=== PATIENT | female | born 2000 | race Caucasian/White ===

== ENCOUNTER → 2021-04-19 13:31 | Outpatient (BNVA) | payer OTHER, SELFPAY | PROVIDERS: Visit Provider Nurse Practitioner | DX: Z20.822 Contact with and (suspected) exposure to COVID-19 (principal) | CPT/HCPCS: 87635 ==

== ENCOUNTER → 2022-07-13 09:00 | Outpatient (BNVA) | payer SELFPAY | PROVIDERS: Visit Provider Obstetrics & Gynecology | DX: Z12.4 Encounter for screening for malignant neoplasm of cervix (principal) | CPT/HCPCS: 88175 ==

== ENCOUNTER → 2022-10-21 14:27 | Outpatient (BNVA) | payer SELFPAY | PROVIDERS: PCP Clinical Nurse Specialist Adult Health; Visit Provider Clinical Nurse Specialist Adult Health | DX: R53.83 Other fatigue (principal) | CPT/HCPCS: 80053; 84436; 84443; 84481; 85025 ==

== ENCOUNTER 2023-01-17 16:45 | Emergency (ER) | payer SELFPAY ==
[2023-01-17 16:53] VITALS: BP 139/99; PULSE 76; RESP 19; TEMP 37.3; BMI 21.2
--- NOTE | 2023-01-17 17:01 | ED_ITS ---
HPI - Dental/Oral General: Chief complaint: Dental/Oral Stated complaint: tooth ache Time Seen by Provider: 01/17/23 16:54 Source: patient Mode of arrival: ambulatory Limitations: no limitations History of Present Illness: Patient states that she was eating chips earlier today and bit down and suffered onset of pain in her left upper jaw tooth. She states the pain is continued since that time. She has had some achiness in that area previously but no other symptoms like she is experiencing now. She has had a prior filling in that tooth. Otherwise no other dental problems. No other constitutional complaints to include fevers chills etc. MD Complaint: tooth pain Location: Tooth # (13) Teeth map: 1. Area of pain Duration: constant Severity: moderate Associated symptoms: Denies fever(s) or odynophagia Review of Systems Const: Denies: fever(s) or chills Eyes: Denies: change in vision ENMT: Reports: dental pain; Denies: throat pain or odynophagia GI: Denies: nausea or vomiting Musc: Denies: neck pain Skin/Breast: Denies: rash or pruritus Neuro: Denies: headache(s), numbness in extremities or weakness in extremities Psych: Denies: anxiety or depression PFSH ED PFSH: Medical History No pertinent past medical history neghx:htn,dm,thyroid,dvt/pe PCP: Not Established Surgical History No pertinent past surgical history Family History Grandmother Colon cancer Maternal Diabetes Maternal Hyperlipidemia Maternal Family/Other Diabetes Aunt and Uncle/ Maternal Denies family history of Ovarian cancer Heart disease Breast cancer Hypertension Uterine cancer Thyroid condition Stroke Social History Smoking and tobacco status: current every day smoker e-cigarettes E-Cigarette Details: vaporizer device Alcohol intake: current Alcohol intake frequency: holidays/special occasions only Substance/Drug Use: never Education level details: high school Current occupational status: employed Current occupation: Restaurant Physical Exam Narrative: EXAM NARRATIVE: She makes good eye contact but is tearful Const: COMMON NORMALS: average body habitus, patient oriented x3 and healthy appearing GENERAL APPEARANCE: cooperative HENMT: COMMON NORMALS: normocephalic, atraumatic, EAC's normal, TM's normal bilaterally and moist oral mucous membranes HEAD & SCALP: normocephalic and atraumatic FACE & SINUS: normal facial exam and face symmetric EXTERNAL AUDITORY CANAL: EAC's normal TYMPANIC MEMBRANE: TM's normal bilaterally MOUTH: lip normal and tongue normal TEETH & GINGIVA IMAGES: 1. Area of tenderness to percussion and pressure. She also has a intact rastafari THROAT: posterior oropharynx normal, tonsils normal and uvula midline OTHER: She has tenderness to percussion over tooth 13 and 14. No gum swelling, evidence of gingivitis, obvious decay noted. She does have a rastafari over the crown of 13 appears intact. Eye: COMMON NORMALS: Equal, round and reactive pupils present and EOMs intact bilaterally PUPIL: Yes Equal, round and reactive pupils present Neck/C-Spine: COMMON NORMALS: full ROM and no lymphadenopathy Resp: EFFORT & INSPECTION: Yes able to speak in complete sentences Cardio: COMMON NORMALS: regular rhythm RHYTHM: regular rhythm Neuro: COMMON NORMALS: patient oriented x3 Procedures Nerve Block Nerve Block 1: Local Anesthetic: lidocaine 1% Side: left Intraoral Nerve Block: infraorbital Procedure Successful: Yes Patient Tolerated Procedure: well Complications: none Course Reevaluation(s): Reevaluation #1: Patient's had fair response to her infraorbital nerve block. Additional 1 mL of 1% lidocaine was injected more proximal along the superior alveolar nerve. No evidence to suggest acute infection at this time. We will have her use ibuprofen for the next 24 hours with ice packs. She should follow-up with her dentist if her pain returns. She would likely need Panorex or other radiographs to determine if she has an occult abscess or other condition or just suffering from nerve pain due to her mastication. Time: 17:26 Reevaluation #2: Doing better; about 90% better. Discussed home care, expected course, dentist follow-up Time: 18:05 Vital Signs: Vital signs: Vital Signs Temperature 99.1 F 01/17/23 16:53 Pulse Rate 76 01/17/23 16:53 Respiratory Rate 19 H 01/17/23 16:53 Blood Pressure 139/99 01/17/23 16:53 MDM - Dental/Oral Medical Decision Making Patient presented to the emergency department with acute left maxillary pain after eating chips. No significant history of dental pain in the same area. Has had a previous rastafari in that area. Her clinical examination revealed a healthy appearing tooth and gingival region. There is no evidence of gingivitis. No obvious periapical abscess. She does have a what appears to be an intact rastafari on tooth #13 but is tender to percussion. She responded well to a infraorbital nerve block. Plan will be to discharge her on ibuprofen with dental follow-up if she has persistent or recurrent pain. No radiology studies performed this visit Discharge Plan Discharge Patient Disposition: Home Clinical Impression: Pain, dental Condition: Stable Prescriptions: No Action No Known Home Medications Discharge Orders: Discharge ED (Routine); Ordered 01/17/23 Ordered By: Abdirizak Duenas Referrals: Sukumar Smith NP [Primary Care Provider] - Discharge Diet: Soft Mechanical Discharge Activity: Increase activity as tolerated Patient Instructions: Opioid Safety, Pain Management Activity Restrictions/Additional Instructions: You may take btpv-tuy-lbytegk strength ibuprofen 200 mg every 8 hours with meals. Use ice to the area for any residual soreness. If you are still having pain you are welcome to return to the emergency department for reevaluation and perhaps a additional nerve block however if you still continue to have pain tomorrow you should call your dentist for follow-up to include radiographs and other treatment as indicated. If you develop fever or swelling or any other concerns prior to that time you are welcome to return to the emergency department. Coding Level of Care Code ED Professional Poker Player for Jamie Anderson
== END 2023-01-17 18:13 | disposition home or self-care (01) ==
PROVIDERS: Emergency Provider Emergency Medicine; PCP Clinical Nurse Specialist Adult Health
DX: K08.89 Other specified disorders of teeth and supporting structures (principal); F17.290 Nicotine dependence, other tobacco product, uncomplicated
CPT/HCPCS: 64400; 99283

== ENCOUNTER 2024-04-06 01:35 | Emergency (ER) | payer BC, SELFPAY ==
[2024-04-06] VITALS (27 sets, daily range): BP systolic 104–149; BP diastolic 52–109; PULSE 68–109; RESP 14–22; TEMP 36.8; O2SAT 94–100; BMI 29.2
--- NOTE | 2024-04-06 01:39 | W.ED.PSYCHS ---
HPI - Psych General: Chief Complaint: Overdose Stated Complaint: OD Time Seen by Provider: 04/06/24 01:38 History of Present Illness: 24-year-old female who presents emergency room by ambulance. Apparently she called a friend and told them that she had been drinking and took a bunch of medications. These were not her medications. They were last filled on 1030. There was a number of them on the floor. She also vomited. The bottles are empty here. They are escitalopram 10 mg and buspirone 10 mg. She is somewhat somnolent and does not want to speak with us. She does awake. Related Data Previous Rx's Medication Instructions Recorded ciprofloxacin HCl 500 mg tablet 500 mg PO BID #10 tabs 02/21/24 prednisone 20 mg tablet 40 mg (2 x 20 mg) PO DAILY 3 days 02/21/24 #6 tabs Allergies Allergy/AdvReac Type Severity Reaction Status Date / Time Penicillins Allergy Intermediate ADR-vomitin Verified 02/21/24 16:47 g Review of Systems General: Reports: ROS unobtainable due to medical condition [facility] ED PFSH: Medical History No pertinent past medical history neghx:htn,dm,thyroid,dvt/pe PCP: Surgical History No pertinent past surgical history Family History Grandmother Colon cancer Maternal Diabetes Maternal Hyperlipidemia Maternal Family/Other Diabetes Aunt and Uncle/ Maternal Denies family history of Ovarian cancer Heart disease Breast cancer Hypertension Uterine cancer Thyroid disease Stroke Social History Smoking and tobacco/nicotine status: tobacco/nicotine user, details unknown e-cigarettes E-Cigarette Details: vaporizer device Alcohol intake: current Alcohol intake frequency: holidays/special occasions only Substance/Drug Use: never Education level details: high school Current occupational status: employed Current occupation: Restaurant Physical Exam Narrative: EXAM NARRATIVE: General: Somnolent, no acute distress. Skin: Warm, dry. Head: Normocephalic, atraumatic. Neck: Supple, trachea midline. Eye: Extraocular movements are intact. Ears, nose, mouth and throat: mucosa moist. Cardiovascular: Regular, Normal peripheral perfusion. Respiratory: Lungs are clear to auscultation, respirations are non-labored, breath sounds are equal, Symmetrical chest wall expansion. Gastrointestinal: Soft, Nontender, Non distended Musculoskeletal: Normal ROM, no deformity. Neurological: Somnolent but arousable, No focal neurological deficit observed. Psychiatric: Cooperative, patient is quite somnolent, she appears depressed tearful at times Course Vital Signs: Vital signs: Vital Signs Temperature 98.3 F 04/06/24 01:36 Pulse Rate 82 04/06/24 04:20 Respiratory Rate 19 H 04/06/24 04:20 Blood Pressure 119/70 04/06/24 04:20 Pulse Oximetry 94 04/06/24 04:20 Oxygen Delivery Me thod Room Air 04/06/24 03:00 MDM - Psych Medical Decision Making Differential diagnosis: Patient with reported depression and suicidal ideation. concerns for infection, alcohol intoxication, cardiac issues or other medical problems prior to psychiatric admission. Workup: labwork, ekg ordered to evaluate the pathologies and to clear the patient medically prior to psychiatric admission EKG: Time 1:51 AM. Rate 109. Sinus tachycardia, No ST-T changes, no ectopy, normal IN & QRS intervals, This was reviewed and interpreted by myself the ER physician at 1:55 AM Lab Review: Laboratory results were reviewed and interpreted by myself the emergency room physician. - EKG shows no ischemic changes. - Blood alcohol level is 89, -Tylenol and salicylate levels are negative. - Drug screen is negative - No signs of infection, urinalysis clear and white count is not elevated - No anemia. - BUN and creatinine are within normal limits. Consultation: Poison control was contacted. They recommend a 4-hour EKG Assessment and plan: Suicidal ideation Depression Multiple drug overdose -Patient will require transfer to neuropsychiatric unit for continued evaluation and treatment. Her is admitted to the Neuropsych Unit here so she will not be able to go here. - All lab work was reviewed and interpreted personally by myself, the ER physician - Evaluation and treatment of this problem were appropriate in the emergency setting Lab Data 04/06/24 01:46 04/06/24 01:46 Laboratory Results WBC 6.85 10^3/uL (3.29-11.43) 04/06/24 01:46 RBC 4.55 10^6/uL (3.85-5.65) 04/06/24 01:46 Hgb 14.40 g/dL (11.27-16.99) 04/06/24 01:46 Hct 41.1 % (36-47) 04/06/24 01:46 MCV 90.3 fl (85-98) 04/06/24 01:46 MCH 31.6 pg (27-33) 04/06/24 01:46 MCHC 35.0 g/dL (30-55) 04/06/24 01:46 RDW 13.9 % (12.1-15.1) 04/06/24 01:46 Plt Count 255 10^3/cmm (157-399) 04/06/24 01:46 MPV 9.1 fL (7.4-10.4) 04/06/24 01:46 Neut % (Auto) 56.9 % 04/06/24 01:46 Lymph % (Auto) 30.1 % 04/06/24 01:46 Jerome % (Auto) 10.4 % 04/06/24 01:46 Eos % (Auto) 2.0 % 04/06/24 01:46 Baso % (Auto) 0.3 % 04/06/24 01:46 Neut # (Auto) 3.90 10^3/uL (1.8-7.7) 04/06/24 01:46 Lymph # (Auto) 2.1 10^3/uL (0.8-4.8) 04/06/24 01:46 Jerome # (Auto) 0.7 10^3/uL (0.2-0.9) 04/06/24 01:46 Eos # (Auto) 0.1 10^3/uL (0.0-0.8) 04/06/24 01:46 Baso # (Auto) 0.0 10^3/uL (0.0-0.1) 04/06/24 01:46 Nucleated RBC % (auto) 0 % 04/06/24 01:46 Nucleated RBCs # 0.0 /100WBC 04/06/24 01:46 Specimen Type Art 04/06/24 01:39 Sample Site Radial right 04/06/24 01:39 ABG pH 7.39 (7.35-7.45) 04/06/24 01:39 ABG pCO2 36.7 mmHg (35-45) 04/06/24 01:39 ABG pO2 95.9 mmHg (80.0-100.0) 04/06/24 01:39 ABG PO2/FiO2 Ratio 456 04/06/24 01:39 ABG HCO3 22.3 mmol/L (22-26) 04/06/24 01:39 ABG O2 Saturation 98 04/06/24 01:39 ABG Base Excess -2.2 mmol/L (-2.0-2.0) L 04/06/24 01:39 Donovan Test Y 04/06/24 01:39 A-a O2 Gradient Not Reportable 04/06/24 01:39 Hematocrit Not Reportable 04/06/24 01:39 Hgb O2 Saturation 96.2 % (95-100) 04/06/24 01:39 Carboxyhemoglobin 0.7 %THgb (0.4-20.1) 04/06/24 01:39 Methemoglobin 1.2 % (0.4-1.5) 04/06/24 01:39 Total Hemoglobin 14.2 g/dL (12-16) 04/06/24 01:39 Sodium 145.0 mmol/L (131-143) H 04/06/24 01:39 Potassium 2.8 mmol/L (3.5-5.0) L 04/06/24 01:39 Glucose 126.0 mg/dL (70-115) H 04/06/24 01:39 Ionized Calcium Not Reportable 04/06/24 01:39 O2 Delivery Device None 04/06/24 01:39 FiO2 21.0 % 04/06/24 01:39 Specimen Drawn By Lois 04/06/24 01:39 User Interface Designer ID No 04/06/24 01:39 Blood Gas Notified Time 0154 04/06/24 01:39 Sodium 142 mmol/L (136-145) 04/06/24 01:46 Potassium 3.1 mmol/L (3.5-5.1) L 04/06/24 01:46 Chloride 104 mmol/L (98-107) 04/06/24 01:46 Carbon Dioxide 23 mmol/L (22-29) 04/06/24 01:46 Anion Gap 18.1 (5-19) 04/06/24 01:46 BUN 3 mg/dL (6-20) L 04/06/24 01:46 Creatinine 0.7 mg/dL (0.5-0.9) 04/06/24 01:46 GFR Calculation 102.0 mL/min (90-130) 04/06/24 01:46 Glucose 137 mg/dL (65-115) H 04/06/24 01:46 Calculated Osmolality 293 mOsm/kg (285-295) 04/06/24 01:46 Lactic Acid 3.2 mmol/L (0.5-2.2) H 04/06/24 01:46 Calcium 8.7 mg/dL (8.5-10.5) 04/06/24 01:46 Total Bilirubin 0.5 mg/dL (0.15-1.2) 04/06/24 01:46 AST 20 U/L (0-32) 04/06/24 01:46 ALT 22 U/L (0-33) 04/06/24 01:46 Alkaline Phosphatase 100 U/L (35-105) 04/06/24 01:46 Total Protein 6.9 g/dL (6.6-8.7) 04/06/24 01:46 Albumin 4.2 g/dL (3.5-5.2) 04/06/24 01:46 Globulin 2.7 g/dL (1.3-4.6) 04/06/24 01:46 TSH 1.66 uIU/mL (0.27-4.20) 04/06/24 01:46 HCG, Qual Negative (Negative) 04/06/24 02:00 Urine Color Yellow (Yellow) 04/06/24 02:00 Urine Appearance Cloudy (CLEAR) A 04/06/24 02:00 Urine pH 6.0 (5-7) 04/06/24 02:00 Ur Specific [place] 1.003 (1.005-1.030) L 04/06/24 02:00 Urine Protein Negative (Negative) 04/06/24 02:00 Urine Glucose (UA) Negative (Normal) 04/06/24 02:00 Urine Ketones Negative (Negative) 04/06/24 02:00 Urine Blood Negative (Negative) 04/06/24 02:00 Urine Nitrate Negative (Negative) 04/06/24 02:00 Urine Bilirubin Negative (Negative) 04/06/24 02:00 Urine Urobilinogen 0.2 mg/dL (Negative) 04/06/24 02:00 Ur Leukocyte Esterase Trace (Negative) A 04/06/24 02:00 Urine RBC 0-2 /hpf (0-2) 04/06/24 02:00 Urine WBC 0-5 /hpf (0-5) 04/06/24 02:00 Ur Squamous Epith Cells 11-20 /hpf (0-5) 04/06/24 02:00 Amorphous Sediment Not Reportable 04/06/24 02:00 Urine Bacteria Trace /hpf (NONE) 04/06/24 02:00 Hyaline Casts 0.81 /lpf 04/06/24 02:00 Salicylates < 0.3 mg/dL (3-10) L 04/06/24 01:46 Urine Opiates Screen Negative ng/mL (Negative) 04/06/24 02:00 Acetaminophen < 5.0 ug/mL (10-30) L 04/06/24 01:46 Ur Barbiturates Screen Negative ng/mL (Negative) 04/06/24 02:00 Ur Phencyclidine Scrn Negative ng/mL (Negative) 04/06/24 02:00 Ur Amphetamines Screen Negative ng/mL (Negative) 04/06/24 02:00 U Benzodiazepines Scrn Negative ng/mL (Negative) 04/06/24 02:00 Urine Cocaine Screen Negative ng/mL (Negative) 04/06/24 02:00 U Marijuana (THC) Screen Negative ng/mL (Negative) 04/06/24 02:00 Ethyl Alcohol 89 mg/dL (0-10) H 04/06/24 01:46 No radiology studies performed this visit Discharge Plan Discharge Patient Disposition: Admitted As Inpatient Clinical Impression: Drug overdose, Suicide attempt by multiple drug overdose, Alcohol intoxication Condition: Stable Coding Level of Care Code ED Breeding Manager for Jamie Anderson
--- NOTE | 2024-04-06 01:45 | PC.NURSE ---
Contacted poison control. Per poison control side effects of excessive Busprone will consist of nausea and vomiting and is low risk for OD. Mild side effects of Estalopram include dizziness, drowsiness, and tachycardia. More severe side effects include seizure, wide QRS complex, and QT prolongation. Per poison control recommendation treatment includes supportive care, do not administer charcoal, Obtain initial EKG and repeat EKG in 4 hours, If QT prolongation present ensure mag and k+ levels are at high end of normal, if QRS widening consider bicarb. Estalopram half life is 27-32 hours.
--- NOTE | 2024-04-06 01:51 | ECG_ITS ---
[facility]: 2024[facility]06 Pat Name: Victor Hugo Bernabe Department: Room: Gender: Female Lacemaker: : 2000 Requested By: Ju Shahid Order Number: [id number] Aguilar MD: Marko Alexandra M.D. Measurements Intervals [place] Rate: 108 P: 63 DE: 144 QRS: 74 QRSD: 105 T: 24 QT: 355 QTc: 476 Interpretive Statements SINUS TACHYCARDIA INCOMPLETE RIGHT BUNDLE BRANCH BLOCK [90+ ms QRS DURATION, TERMINAL R IN V1/V2, 40+ ms S IN I/aVL/V4/V5/V6] NONSPECIFIC T-WAVE ABNORMALITY ABNORMAL RHYTHM ECG No previous ECG available for comparison Electronically Signed On 04-06-2024 23:57:30 TARIFF COMPILING CLERK by Marko Alexandra M.D. [email or web address]
[2024-04-06 01:53] LABS: Basophils % 0.3 %; Eosinophils # 0.1 10^3/uL (0.0-0.8); Hematocrit 41.1 % (36-47); Lymphocytes # 2.1 10^3/uL (0.8-4.8); Lymphocytes % 30.1 %; Mean Corpuscular Hemoglobin 31.6 pg (27-33); Mean Corpuscular Volume 90.3 fl (85-98); Mean Platelet Volume 9.1 fL (7.4-10.4); Monocytes # 0.7 10^3/uL (0.2-0.9); Monocytes % 10.4 %; Neutrophils % 56.9 %; Nucleated Red Blood Cells % 0 %; Platelet Count 255 10^3/cmm (157-399); Red Blood Count 4.55 10^6/uL (3.85-5.65); Red Cell Distribution Width 13.9 % (12.1-15.1); White Blood Count 6.85 10^3/uL (3.29-11.43)
[2024-04-06 02:08] LABS: HCG Qualitative Urine. Negative (Negative)
[2024-04-06 02:09] LABS: Lactic Sepsis W/Reflex 3.2 mmol/L (0.5-2.2)
[2024-04-06 02:10] LABS: Bilirubin Urine Negative (Negative); Blood Urine Negative (Negative); Glucose Urine UA Negative (Normal); Ketones Urine Negative (Negative); Leukocyte Esterase Urine Trace (Negative); Nitrate Urine Negative (Negative); Protein Urine Negative (Negative); Specific Gravity, Urine 1.003 (1.005-1.030); Urine Appearance Cloudy (CLEAR); Urine Color Yellow (Yellow); Urobilinogen Urine 0.2 mg/dL (Negative)
[2024-04-06 02:15] LABS: Bacteria Urine Trace /hpf; Hyaline Casts Urine 0.81 /lpf; RBC Urine 0-2 /hpf (0-2); WBC Urine 0-5 /hpf (0-5)
[2024-04-06 02:16] LABS: Amphetamines Screen Urine Negative (Negative); Barbiturates Screen Urine Negative (Negative); Benzodiazepines Screen Urine Negative (Negative); Cocaine Screen Urine Negative (Negative); Opiate Screen Urine Negative (Negative); PCP Screen Urine Negative (Negative); THC Screen Urine Negative (Negative)
[2024-04-06 02:18] LABS: Alanine Aminotransferase 22 U/L (0-33); Albumin Level 4.2 g/dL (3.5-5.2); Alcohol Level 89 mg/dL (0-10); Alkaline Phosphatase 100 U/L (35-105); Anion Gap 18.1 (5-19); Aspartate Amino Transferase 20 U/L (0-32); Blood Urea Nitrogen 3 mg/dL (6-20); Calcium 8.7 mg/dL (8.5-10.5); Carbon Dioxide 23 mmol/L (22-29); Chloride 104 mmol/L (98-107); Creatinine Clr Calc Pharmacy 119.0401; Globulin 2.7 g/dL (1.3-4.6); Glucose 137 mg/dL (65-115); Osmolality Calculated 293 mOsm/kg (285-295); Potassium 3.1 mmol/L (3.5-5.1); Sodium 142 mmol/L (136-145); Thyroid Stimulating Hormone 1.66 uIU/mL (0.27-4.20); Total Bilirubin 0.5 mg/dL (0.15-1.2); Total Protein 6.9 g/dL (6.6-8.7)
[2024-04-06 02:30] LABS: Acetaminophen < 5.0 ug/mL (10-30); Salicylate < 0.3 mg/dL (3-10)
[2024-04-06 03:14] LABS: Reflex Lactate Order REFLEX LACTIC ORDERD
--- NOTE | 2024-04-06 03:32 | PC.NURSE ---
96 Hour Involuntary Hold Patient Rights have been read to the patient and a copy of the same has been given to her. Washer Engineer Helper Samuel Granados was present at the bedside at the time of presentation of Rights.
[2024-04-06 03:54] LABS: ABG PCO2 36.7 mmHg (35-45); ABG PH Result 7.39 (7.35-7.45); HCO3 ABG 22.3 mmol/L (22-26); PO2 ABG 95.9 mmHg (80.0-100.0)
[2024-04-06 03:55] LABS: Base Excess ABG -2.2 mmol/L (-2.0-2.0); Blood Gas Allen Test Y; Blood Gas Operator Identificat NO; Oxygen Saturation ABG 98; PO2 FiO2 Ratio Arterial Blood 456; Potassium Level - ABG 2.8 mmol/L (3.5-5.0)
[2024-04-06 03:56] LABS: Blood Gas Drawn By BUSJA
[2024-04-06 03:57] LABS: Blood Gas Sample Site RADIAL RIGHT; Blood Gas Sample Type ART
[2024-04-06 04:01] LABS: Carboxyhemoglobin 0.7 %THgb (0.4-20.1); HGB O2 Sat 96.2 % (95-100); Methemoglobin 1.2 % (0.4-1.5); Total Hemoglobin 14.2 g/dL (12-16)
[2024-04-06 05:18] LABS: Lactic Acid level (Lactate) 1.6 mmol/L (0.5-2.2)
--- NOTE | 2024-04-06 06:11 | ECG_ITS ---
[facility] Date: 2024-04-06 Pat Name: Victor Hugo Bernabe Department: Room: Gender: Female [employer] Consultant: : 2000 Requested By: Ju Shahid Order Number: [id number] Aguilar MD: Marko Alexandra M.D. Measurements Intervals [place] Rate: 96 P: 63 SD: 146 QRS: 74 QRSD: 100 T: 46 QT: 351 QTc: 443 Interpretive Statements SINUS RHYTHM POSSIBLE RIGHT VENTRICULAR CONDUCTION DELAY [RSR (QR) IN V1/V2] NONSPECIFIC T-WAVE ABNORMALITY Compared to ECG 04/06/2024 01:51:59 Sinus tachycardia no longer present Incomplete right bundle-branch block no longer present T-wave abnormality still present Electronically Signed On 04-06-2024 23:57:35 COMPO CONVEYOR OPERATOR by Marko Alexandra M.D. [id number]
--- NOTE | 2024-04-06 09:08 | PC.NURSE ---
this nurse spoke with poison control, gave update on pt status. no further interventions per poison control at this time.
--- NOTE | 2024-04-06 09:38 | ECG_ITS ---
[facility] Date: 2024-04[facility]06 Pat Name: Victor Hugo Bernabe Department: Room: Gender: Female Shingles Roofer Helper: : 2000 Requested By: Heri Monique Order Number: [id number] Aguilar MD: Marko Alexandra M.D. Measurements Intervals [place] Rate: 84 P: 67 ID: 150 QRS: 76 QRSD: 97 T: 46 QT: 370 QTc: 437 Interpretive Statements SINUS RHYTHM WITH SINUS ARRHYTHMIA POSSIBLE LEFT ATRIAL ENLARGEMENT [-0.1mV P-WAVE IN V1/V2] POSSIBLE RIGHT VENTRICULAR CONDUCTION DELAY [RSR (QR) IN V1/V2] Compared to ECG 04/06/2024 06:11:12 T-wave abnormality no longer present Electronically Signed On 04-06-2024 23:57:41 [employer] by Marko Alexandra M.D. [id number]
--- NOTE | 2024-04-06 09:43 | PC.NURSE ---
this nurse spoke with [facility] intake nurse, states will call back.
--- NOTE | 2024-04-06 10:04 | PC.NURSE ---
Erin from [facility], [facility] pt accepted via Dr. Gardiner to bed 402. states to call report to ext [phone].
[2024-04-06] MEDS: potassium bicarb 25 mEq Tablet 50 MEQ PO (10:16)
--- NOTE | 2024-04-06 10:17 | PC.NURSE ---
1,600mL urine in segundo bag upon removal
--- NOTE | 2024-04-06 10:40 | PC.NURSE ---
attempted to call report @[phone], [facility] states will call back when nurse available
--- NOTE | 2024-04-06 12:06 | PC.NURSE ---
report called to Selena Colby, KADE @[phone], no further questions at end of report.
--- NOTE | 2024-04-06 13:27 | PC.NURSE ---
bilateral IVs removed, pt changed into green paper scrubs, report given to [facility] @[phone]. pt belongings sent with EMS/pt, green tag already placed
== END 2024-04-06 13:35 | disposition admitted as inpatient to this hospital (09) ==
PROVIDERS: Emergency Provider Emergency Medicine; PCP Clinical Nurse Specialist Adult Health
DX: T50.903A Poisoning by unspecified drugs, medicaments and biological substances, assault, initial encounter (principal); X58.XXXA Exposure to other specified factors, initial encounter; F17.290 Nicotine dependence, other tobacco product, uncomplicated; F10.129 Alcohol abuse with intoxication, unspecified; Y90.4 Blood alcohol level of 80-99 mg/100 ml
CPT/HCPCS: 36415; 51702; 80051; 80053; 80306; 80307; 81001; 81025; 82330; 82805; 83605; 84443; 85025; 93005; 99285

== ENCOUNTER → 2024-04-19 18:44 | Outpatient (BNVA) | payer BC, SELFPAY | PROVIDERS: PCP Clinical Nurse Specialist Adult Health | DX: R39.9 Unspecified symptoms and signs involving the genitourinary system (principal) | CPT/HCPCS: 81000 ==

== ENCOUNTER → 2024-05-07 17:49 | Outpatient (BNVA) | payer BC, SELFPAY | PROVIDERS: PCP Clinical Nurse Specialist Adult Health; Visit Provider Emergency Medicine | DX: R39.9 Unspecified symptoms and signs involving the genitourinary system (principal) | CPT/HCPCS: 81000 ==

== ENCOUNTER → 2024-05-26 11:04 | Outpatient (BNVA) | payer BC, SELFPAY | PROVIDERS: PCP Clinical Nurse Specialist Adult Health; Visit Provider Obstetrics & Gynecology | DX: R30.0 Dysuria (principal) | CPT/HCPCS: 81000 ==

== ENCOUNTER → 2024-08-16 16:11 | Outpatient (BNVA) | payer BC, SELFPAY | PROVIDERS: PCP Clinical Nurse Specialist Adult Health; Visit Provider Nurse Practitioner | DX: R30.0 Dysuria (principal) | CPT/HCPCS: 81000 ==